=== PATIENT | female | born 1970 ===

== ENCOUNTER 2024-04-20 09:58 | Outpatient (CLI) | payer OTHER ==
[2024-04-20] VITALS (9 sets, daily range): BP systolic 120–149; BP diastolic 62–82; PULSE 66–80; TEMP 97.8
[~2024-04-20 09:58] MED LIST: AUBAGIO14 MG PO; PROSOM2 MG; PROZAC 20MG20 MG PO
[2024-04-20] MEDS ORDERED: methylPREDNISolone Sod Succ 125 MG/2 ML VIAL IV X1 NOW IV ONE (10:30)
[2024-04-20] MEDS ORDERED: NS 1,000 ML IV @ 100 ML/HR PRN ALLERGIC REACTION IV (10:30)
[2024-04-20] MEDS ORDERED: EPINEPHrine 0.3 MG/0.3 ML Auto Injector IM PRN (10:30)
[2024-04-20] MEDS ORDERED: diphenhydrAMINE 50 MG/ML 1 ML VIAL IV ONE (10:30)
[2024-04-20] MEDS ORDERED: CHARCOAL PO (10:50)
--- NOTE | 2024-04-20 14:50 | NUR ---
PT TOLERATED INFUSION WELL. PT WAS OBSERVED FOR ONE HOUR FOLLOWING INFUSION ORDERED BY PHYSICIAN. PT REMAINED FREE FROM SIGNS OF ADVERSE AND ALLERGIC REACTION. PT AMBULATED INDEPENDENTLY TO MAIN LOBBY UPON DISCHARGE AND IV WAS DISCONTINUED. NEXT APPOINTMENT SCHEDULED AND REVIEWED.
== END 2024-04-20 14:51 | disposition home or self-care (01) ==
LOC: EUO 09:58
DX: G35 Multiple sclerosis (principal)
CPT/HCPCS: J1200; J2350; J2919; J7050